=== PATIENT | male | born 1965 | race Caucasian/White ===

== ENCOUNTER 2020-04-04 04:59 | Day surgery (SDC) | payer BC, OTHER ==
--- NOTE | 2020-04-04 12:01 | HP ---
History & Physical Update - History History: No Change - Physical Physical: No Change - Assessment Assessment: No Change - Plan Plan: No Change
--- NOTE | 2020-04-04 12:05 | OP ---
Operative Note - Note: Operative Date: 04/04/20 Operation: L ureteroscopic laser lithotripsy and JJ stent change Findings: L ureteral calculus Post-Operative Diagnosis: Same as Pre-op Surgeon: Foreign Celeste Anesthesiologist/SUPERVISOR QUILTING: Marcia Guadalupe Anesthesia: General Specimens Removed: L JJ stent, L ureteral calculi Estimated Blood Loss (mls): 0 Drains & Tubes with Location: 6 fr 26 cm L JJ stent Operative Report Dictated: Yes
[2020-04-04] MEDS ORDERED: PROPOFOL 20 ML ONE ×2 (13:00)
[2020-04-04] MEDS ORDERED: ceFAZolin SODIUM 1 GM VIAL ONE (13:01)
[2020-04-04] MEDS ORDERED: LIDOCAINE HCL/PF 2% SDV 5ML VIAL ONE (13:01)
[2020-04-04] MEDS ORDERED: ceFAZolin SODIUM 1 GM VIAL IVPB ONE (13:10)
[2020-04-04] MEDS ORDERED: GLYCOPYRROLATE 0.2 MG/1 ML VIAL ONE (13:16)
[2020-04-04] MEDS ORDERED: DEXAMETHASONE SOD PHOSPHATE 4 MG/1 ML VIAL ONE (13:38)
[2020-04-04] MEDS ORDERED: oxyCODONE HCL 5 MG TABLET PO PRN ×2 (14:04)
[2020-04-04] MEDS ORDERED: ONDANSETRON 4 MG/2 ML VIAL IVPUSH PRN (14:04)
[2020-04-04] MEDS ORDERED: LACTATED RINGERS SOLUTION 1,000 ML IV SCH (14:15)
[2020-04-04 16:26] VITALS: BP 125/78; PULSE 79; TEMP 97.5
--- NOTE | 2020-04-04 16:30 | OP ---
DATE OF OPERATION: 04/04/2020 PREOPERATIVE DIAGNOSIS: Left ureteral calculus. POSTOPERATIVE DIAGNOSIS: Left ureteral calculus. PROCEDURE: Left ureteroscopic laser lithotripsy and double-J stent change. SURGEON: Foreign Lagunas MD COUNTER FORMER: None. ANESTHESIA: General via laryngeal mask. ANESTHESIOLOGIST: ELLIE Alvares SPECIMENS: Left double-J stent. CULTURES: None. DRAINS: Left double-J stent, 6-Bolivian 26 cm. ESTIMATED BLOOD LOSS: None. COMPLICATIONS: None. DESCRIPTION OF PROCEDURE: Patient was brought in the operating room, placed on the operating table in the supine position. After administration of general anesthesia via laryngeal mask, intravenous antibiotics were administered. Sequential compression devices were placed. The patient was placed in the dorsal lithotomy position. Genitals and perineum were prepped and draped in the usual sterile manner. A 22-Bolivian cystoscope was inserted into the bladder under direct vision. Anterior and posterior urethra was normal. The bladder was entered, thoroughly inspected. There were no tumors, stones, with some inflammation related to the left double-J stent. Left double-J stent was grasped at the tip, brought to the urethral meatus, cannulated with a 0.038 guidewire and advanced to the level of the left renal pelvis under direct visual and fluoroscopic guidance. The left double-J stent was then removed and sent to pathology as specimen. The semirigid ureteroscope was then inserted alongside the guidewire to the level of the midureter. A large calculus was visualized. Now a 365-micron laser fiber was inserted. Laser lithotripsy was done until the stone was fragmented into small pieces. The basket was inserted and these fragments were basketed and removed. Retrograde pyelogram was done, demonstrated no additional filling defects, no extravasation of contrast, no hydronephrosis. Left double-J stent was left in place, the scope backloaded, and a 6-Bolivian 26-cm left double-J stent was inserted over the guidewire under direct visual and fluoroscopic guidance, leaving 1 coil in the renal pelvis and 1 coil in the bladder. The bladder was emptied, cystoscope removed. He tolerated the procedure well, transferred to recovery in stable condition. The stent was secured to the penis with a suture and a Tegaderm. FOREIGN LAGUNAS M.D. [id number]
--- NOTE | 2020-04-08 14:47 | PATH ---
Surgical Pathology Report Patient Name: KAREN BELL Med. Rec. #: [id number] /Age/Gender: 1965 (Age: 55) / M Account: [id number] Location: [facility] Taken: 04/04/2020 Received: 04/07/2020 Reported: 04/08/2020 Physicians: Foreign Celeste M.D. Specimen(s) Received A: LEFT URETERAL STENT B: LEFT URETERAL STONE Clinical History Calculus of ureter Final Diagnosis A. URETERAL STENT, LEFT, EXCHANGE: URETERAL STENT. MACROSCOPIC DIAGNOSIS. B. URETERAL STONE, LEFT, LASER LITHOTRIPSY: URETEROLITHIASIS. MACROSCOPIC DIAGNOSIS. Electronically Signed Caity Iglesias M.D. Gross Description A. Received fresh labeled "left ureteral stent," is a 39 cm in length blue, coiled portion of tubing, consistent with a ureteral stent. No soft tissue is present. No sections are submitted, gross only. B. Received fresh labeled "left ureteral stone," is a 0.5 cm in greatest dimension mcrae, irregular calculus which is sent for chemical analysis. 04/07/2020 saudi04/07/2020
[2020-04-23 14:10] LABS: SIZE 4X3 mm
[2020-04-23 14:11] LABS: CA OXALATE MONOHYDR. 45; URIC ACID 40
== END 2020-04-04 16:18 | disposition home or self-care (01) ==
LOC: JASU-SURG 04:59
PROVIDERS: ATTEND Urology
PROC: 0TC78ZZ Extirpation of Matter from Left Ureter, Via Natural or Artificial Opening Endoscopic (ICD-10-PCS; principal; 2020-04-04 13:00)
PROC: 0T778DZ Dilation of Left Ureter with Intraluminal Device, Via Natural or Artificial Opening Endoscopic (ICD-10-PCS; 2020-04-04 13:00)
PROC: BT1FZZZ Fluoroscopy of Left Kidney, Ureter and Bladder (ICD-10-PCS; 2020-04-04 13:00)
DX: N20.1 Calculus of ureter (principal)
CPT/HCPCS: 36415; 76000-TC-FY; 82360; 82962; 88300-TC; 94760

== ENCOUNTER 2020-05-03 00:36 | Emergency (ER) | payer BC, OTHER ==
[2020-05-03 00:55] VITALS: TEMP 97.6; BMI 27.1
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
[2020-05-03] MEDS ORDERED: morphine SULFATE 4 MG/ML VIAL ONE (02:27)
[2020-05-03] MEDS ORDERED: morphine CARPU-JECT 4 MG/1 ML DISP.SYRIN IVPUSH ONE (02:27)
[2020-05-03] MEDS ORDERED: ONDANSETRON 4 MG/2 ML VIAL IVPUSH ONE (02:35)
[2020-05-03 04:53] VITALS: BP 140/86; PULSE 71
== END 2020-05-03 03:51 | disposition short-term general hospital (02) ==
LOC: JER 00:36
PROC: 3E033NZ Introduction of Analgesics, Hypnotics, Sedatives into Peripheral Vein, Percutaneous Approach (ICD-10-PCS; principal; 2020-05-03)
PROC: 3E033GC Introduction of Other Therapeutic Substance into Peripheral Vein, Percutaneous Approach (ICD-10-PCS; 2020-05-03)
DX: M54.2 Cervicalgia (principal); M54.9 Dorsalgia, unspecified; Z04.1 Encounter for examination and observation following transport accident
CPT/HCPCS: 82962; 99284-25

== ENCOUNTER 2020-05-13 05:28 | Day surgery (SDC) | payer BC, OTHER ==
[2020-05-13 06:32] VITALS: BMI 27.8
[2020-05-13] MEDS ORDERED: PROPOFOL 20 ML ONE ×6 (07:30)
[2020-05-13] MEDS ORDERED: MIDAZOLAM HCL 2 MG/2 ML SINGLE DOSE VIAL ONE (07:32)
[2020-05-13] MEDS ORDERED: SUCCINYLCHOLINE CHLORIDE 200 MG/10 ML SYRINGE ONE (07:33)
--- NOTE | 2020-05-13 07:36 | OP ---
Operative Note - Note: Operative Date: 05/13/20 Pre-Operative Diagnosis: L renal calculi Operation: ESWL L Findings: L renal calculus Post-Operative Diagnosis: Same as Pre-op Surgeon: Foreign Celeste Anesthesiologist/CHIPPER FEEDER: Papo Ceron Anesthesia: MAC Estimated Blood Loss (mls): 0 Operative Report Dictated: Yes
--- NOTE | 2020-05-13 10:00 | OP ---
DATE OF OPERATION: 05/13/2020 PREOPERATIVE DIAGNOSIS: Left renal calculi. POSTOPERATIVE DIAGNOSIS: Left renal calculi. PROCEDURE: Extracorporeal shockwave lithotripsy left renal calculus. SURGEON: Foreign Lagunas MD VALUER: None. ANESTHESIA: IV sedation. ANESTHESIOLOGIST: Papo Ceron MD SPECIMEN: None. CULTURES: None. DRAINS: None. ESTIMATED BLOOD LOSS: None. COMPLICATIONS: None. DETAILS OF PROCEDURE: The patient was brought to the operating room and placed on the operating room table in the supine position. After administration of intravenous sedation, the patient was positioned over the treatment head and under ultrasound guidance several left renal calculi were identified, targeted, and delivery of 2500 shocks with maximum kilovoltage with excellent fragmentation. The patient tolerated the procedure well and transferred to the recovery room in stable condition. FOREIGN LAGUNAS M.D. [id number]
[2020-05-13 12:07] VITALS: BP 152/94; PULSE 68; TEMP 96
== END 2020-05-13 09:40 | disposition home or self-care (01) ==
LOC: JASU-SURG 05:28
PROVIDERS: ATTEND Urology
PROC: 0TF4XZZ Fragmentation in Left Kidney Pelvis, External Approach (ICD-10-PCS; principal; 2020-05-13 07:30)
DX: N20.0 Calculus of kidney (principal)
CPT/HCPCS: 82962